=== PATIENT | male | born 1965 | race Caucasian/White ===

== ENCOUNTER 2021-06-27 12:58 | Inpatient (IN) ==
[2021-06-27 15:00] LABS: Basophils # 0.1 K/mcL (0.0-0.2); Basophils % 0.7 %; Eosinophils # 0.4 K/mcL (0.0-0.6); Eosinophils % 2.6 %; Hematocrit 20.4 % (37.5-50.1); Hemoglobin 6.3 g/dL (12.9-16.9); Immature Granulocytes % 1.7 % (0-4); Lymphocytes # 2.7 K/mcL (0.6-4.6); Lymphocytes % 19.1 %; Mean Corpuscular HGB Conc 30.9 g/dL (31.6-35.5); Mean Corpuscular Hemoglobin 26.9 pg (28.0-33.3); Mean Corpuscular Volume 87.2 fL (83.0-100.0); Mean Platelet Volume 9.2 fL (9.4-12.4); Monocytes # 0.7 K/mcL (0.0-1.3); Monocytes % 4.9 %; Neutrophils # 9.9 K/mcL (1.6-8.9); Nucleated Red Blood Cells 0.3 /100 WBC (0); Platelet Count 620 K/mcL (140-400); Red Blood Count 2.34 M/mcL (4.19-5.50); Red Cell Distribution Width 17.5 % (11.5-14.5); White Blood Count 13.9 K/mcL (4.3-11.1)
[2021-06-27 15:03] LABS: Bilirubin,Urine Moderate (Negative); Blood,Urine Negative (Negative); Clarity,Urine Clear (Clear); Color,Urine Yellow (Yellow); Glucose,Urine (UA) Normal (Normal); Ketones,Urine Negative (Negative); Leukocyte Esterase,Urine Negative (Negative); Nitrite,Urine Negative (Negative); Protein,Urine Trace mg/dL (Neg-Trace); Specific Gravity,Urine 1.015 (1.010-1.025); Urobilinogen,Urine >=8.0 mg/dL (Normal)
[2021-06-27 15:17] LABS: BUN/Creatinine Ratio 12 (6-26); Blood Urea Nitrogen 14 mg/dL (6-20); Calcium 8.9 mg/dL (8.6-10.3); Carbon Dioxide 29 mEq/L (23-29); Chloride 92 mEq/L (98-107); Glucose 111 mg/dL (70-105); Osmolality,Calculated 275 (280-300); Sodium 132 mEq/L (136-145); eGFR For African Americans > 60 (> 60); eGFR For Non-African Americans > 60 (> 60)
[2021-06-27 16:13] LABS: INR 1.5; Prothrombin Time 16.7 Seconds (9.4-12.1)
[2021-06-27] MEDS ORDERED: 0.9 % Sodium Chloride 250 ML IVC SCH (16:15)
[2021-06-27] MEDS ORDERED: 0.9 % Sodium Chloride 1,000 ML IVC ONE (16:34)
[2021-06-27] MEDS: 0.9 % Sodium Chloride 1,000 ML IVC ONE ×2 (16:36→21:00)
[2021-06-27 18:01] LABS: Albumin 3.6 g/dL (3.5-5.7); Albumin/Globulin Ratio 0.9 (1.1-2.2); Bilirubin,Indirect 1.5 mg/dL (0.0-1.0); Bilirubin,Total 2.5 mg/dL (0.3-1.0); Total Protein 7.6 g/dL (6.4-8.9)
[2021-06-27] MEDS ORDERED: Pantoprazole 40 MG VIAL IVP ONE ×2 (18:17→19:15)
[2021-06-27] MEDS ORDERED: Pantoprazole 40 MG VIAL IVP SCH (21:00)
[2021-06-27 22:09] LABS: Hematocrit 20.1 % (37.5-50.1); Hemoglobin 6.2 g/dL (12.9-16.9)
[2021-06-28 05:15] LABS: Basophils # 0.1 K/mcL (0.0-0.2); Basophils % 0.7 %; Eosinophils # 0.3 K/mcL (0.0-0.6); Eosinophils % 2.8 %; Hematocrit 22.4 % (37.5-50.1); Immature Granulocytes % 1.1 % (0-4); Lymphocytes # 2.3 K/mcL (0.6-4.6); Lymphocytes % 21.2 %; Mean Corpuscular HGB Conc 31.3 g/dL (31.6-35.5); Mean Corpuscular Hemoglobin 27.1 pg (28.0-33.3); Mean Corpuscular Volume 86.8 fL (83.0-100.0); Mean Platelet Volume 9.3 fL (9.4-12.4); Monocytes # 0.6 K/mcL (0.0-1.3); Monocytes % 5.8 %; Neutrophils # 7.6 K/mcL (1.6-8.9); Nucleated Red Blood Cells 0.3 /100 WBC (0); Platelet Count 439 K/mcL (140-400); Red Blood Count 2.58 M/mcL (4.19-5.50); Red Cell Distribution Width 16.5 % (11.5-14.5); Segmented Neutrophils % 68.4 %; White Blood Count 11.1 K/mcL (4.3-11.1)
[2021-06-28 07:54] LABS: Iron 59 mcg/dL (65-175)
[2021-06-28] MEDS ORDERED: Octreotide 400 MCG in 0.9 % Sodium Chloride 100 ML IVC SCH ×3 (08:45→18:01)
[2021-06-28] MEDS ORDERED: Pantoprazole 40 MG VIAL IVP SCH (09:00)
[2021-06-28 09:57] LABS: Basophils # 0.1 K/mcL (0.0-0.2); Basophils % 0.7 %; Eosinophils # 0.4 K/mcL (0.0-0.6); Eosinophils % 3.7 %; Hemoglobin 7.2 g/dL (12.9-16.9); Lymphocytes # 2.6 K/mcL (0.6-4.6); Lymphocytes % 22.4 %; Mean Corpuscular HGB Conc 31.3 g/dL (31.6-35.5); Mean Corpuscular Hemoglobin 27.1 pg (28.0-33.3); Mean Corpuscular Volume 86.5 fL (83.0-100.0); Mean Platelet Volume 9.2 fL (9.4-12.4); Monocytes # 0.7 K/mcL (0.0-1.3); Monocytes % 6.5 %; Neutrophils # 7.5 K/mcL (1.6-8.9); Nucleated Red Blood Cells 0.4 /100 WBC (0); Platelet Count 467 K/mcL (140-400); Red Blood Count 2.66 M/mcL (4.19-5.50); Red Cell Distribution Width 16.8 % (11.5-14.5); Segmented Neutrophils % 65.7 %; White Blood Count 11.4 K/mcL (4.3-11.1)
[2021-06-28 10:56] LABS: Estimated Average Glucose 88 mg/dl; Hemoglobin A1C 4.7 %
[2021-06-28 11:27] VITALS: BP 122/76; PULSE 74; RESP 16; TEMP 98.2; O2SAT 97
[2021-07-03 11:20] LABS: % Iron Saturation 20 % (20-55); Transferrin 210
== END 2021-06-28 11:40 | disposition short-term general hospital (02) | DRG 378 ==
LOC: EMEROOGRE 12:58 → INPGRE 12:58
PROVIDERS: ADMIT Family Medicine; ATTEND Family Medicine

== ENCOUNTER 2021-07-04 14:56 | Inpatient (IN) ==
[2021-07-04] MEDS ORDERED: BUPRENORPHINE HCL SL SCH (21:00)
[2021-07-04] MEDS ORDERED: NALOXONE HCL SL SCH (21:00)
[2021-07-04] MEDS ORDERED: *HR* Buprenorphine HCl 8 MG TAB.SUBL SL SCH (22:45)
[2021-07-04] MEDS: *HR* Buprenorphine HCl 8 MG TAB.SUBL SL SCH (23:09)
[2021-07-05 05:31] LABS: Hematocrit 26.6 % (37.5-50.1); Hemoglobin 8.5 g/dL (12.9-16.9); Mean Corpuscular Hemoglobin 28.3 pg (28.0-33.3); Mean Corpuscular Volume 88.7 fL (83.0-100.0); Mean Platelet Volume 9.5 fL (9.4-12.4); Platelet Count 325 K/mcL (140-400); Red Cell Distribution Width 16.9 % (11.5-14.5); White Blood Count 4.7 K/mcL (4.3-11.1)
[2021-07-05 05:48] LABS: BUN/Creatinine Ratio 13 (6-26); Blood Urea Nitrogen 11 mg/dL (6-20); Calcium 8.7 mg/dL (8.6-10.3); Carbon Dioxide 25 mEq/L (23-29); Chloride 95 mEq/L (98-107); Glucose 90 mg/dL (70-105); Osmolality,Calculated 265 (280-300); Potassium 4.2 mEq/L (3.5-5.1); Sodium 128 mEq/L (136-145); eGFR For African Americans > 60 (> 60); eGFR For Non-African Americans > 60 (> 60)
[2021-07-05] MEDS ORDERED: 0.9 % Sodium Chloride 1,000 ML IVC ONE (08:38)
[2021-07-05] MEDS: Cholecalciferol (D-3) 1,000 UNIT (25MCG) TABLET PO SCH (09:07)
[2021-07-05] MEDS: allopurinoL 100 MG TABLET PO SCH (09:07)
[2021-07-05] MEDS: *HR* Buprenorphine HCl 8 MG TAB.SUBL SL SCH ×2 (09:07→20:20)
[2021-07-05] MEDS: Cyanocobalamin (B-12) 1,000 MCG TABLET PO SCH (09:07)
[2021-07-05 11:34] LABS: BUN/Creatinine Ratio 12 (6-26); Blood Urea Nitrogen 12 mg/dL (6-20); Calcium 8.8 mg/dL (8.6-10.3); Carbon Dioxide 24 mEq/L (23-29); Chloride 95 mEq/L (98-107); Glucose 99 mg/dL (70-105); Osmolality,Calculated 268 (280-300); Potassium 4.1 mEq/L (3.5-5.1); Sodium 129 mEq/L (136-145); eGFR For African Americans > 60 (> 60); eGFR For Non-African Americans > 60 (> 60)
[2021-07-06 06:23] LABS: Basophils % 0.6 %; Eosinophils # 0.3 K/mcL (0.0-0.6); Eosinophils % 5.6 %; Hematocrit 25.9 % (37.5-50.1); Hemoglobin 8.3 g/dL (12.9-16.9); Immature Granulocytes % 0.6 % (0-4); Lymphocytes # 1.6 K/mcL (0.6-4.6); Mean Corpuscular Hemoglobin 28.4 pg (28.0-33.3); Mean Corpuscular Volume 88.7 fL (83.0-100.0); Mean Platelet Volume 9.5 fL (9.4-12.4); Monocytes # 0.5 K/mcL (0.0-1.3); Monocytes % 9.5 %; Neutrophils # 2.5 K/mcL (1.6-8.9); Platelet Count 320 K/mcL (140-400); Red Blood Count 2.92 M/mcL (4.19-5.50); Red Cell Distribution Width 16.9 % (11.5-14.5); Segmented Neutrophils % 50.7 %
[2021-07-06 06:39] LABS: BUN/Creatinine Ratio 13 (6-26); Blood Urea Nitrogen 12 mg/dL (6-20); Calcium 8.7 mg/dL (8.6-10.3); Carbon Dioxide 26 mEq/L (23-29); Chloride 96 mEq/L (98-107); Glucose 93 mg/dL (70-105); Osmolality,Calculated 267 (280-300); Sodium 129 mEq/L (136-145); eGFR For African Americans > 60 (> 60); eGFR For Non-African Americans > 60 (> 60)
[2021-07-06] MEDS ORDERED: 0.9 % Sodium Chloride 1,000 ML IVC ONE (07:56)
[2021-07-06] MEDS: *HR* Buprenorphine HCl 8 MG TAB.SUBL SL SCH ×2 (09:13→21:20)
[2021-07-06] MEDS: Cyanocobalamin (B-12) 1,000 MCG TABLET PO SCH (09:13)
[2021-07-06] MEDS: Cholecalciferol (D-3) 1,000 UNIT (25MCG) TABLET PO SCH (09:13)
[2021-07-06] MEDS: allopurinoL 100 MG TABLET PO SCH (09:13)
[2021-07-06] MEDS: polyethylene glycoL 3350 17 GM POWD.PACK PO SCH (09:13)
[2021-07-06] MEDS ORDERED: polyethylene glycoL 3350 17 GM POWD.PACK PO ONE (21:00)
[2021-07-07] MEDS: *HR* Buprenorphine HCl 8 MG TAB.SUBL SL SCH ×2 (08:26→20:20)
[2021-07-07] MEDS: polyethylene glycoL 3350 17 GM POWD.PACK PO SCH (08:26)
[2021-07-07] MEDS: Cholecalciferol (D-3) 1,000 UNIT (25MCG) TABLET PO SCH (08:26)
[2021-07-07] MEDS: Cyanocobalamin (B-12) 1,000 MCG TABLET PO SCH (08:26)
[2021-07-07] MEDS: allopurinoL 100 MG TABLET PO SCH (08:26)
[2021-07-07 09:43] LABS: Basophils # 0.1 K/mcL (0.0-0.2); Basophils % 0.8 %; Eosinophils # 0.4 K/mcL (0.0-0.6); Eosinophils % 6.3 %; Hemoglobin 9.7 g/dL (12.9-16.9); Immature Granulocytes % 0.5 % (0-4); Lymphocytes # 2.3 K/mcL (0.6-4.6); Lymphocytes % 35.7 %; Mean Corpuscular HGB Conc 32.3 g/dL (31.6-35.5); Mean Corpuscular Hemoglobin 28.4 pg (28.0-33.3); Mean Platelet Volume 9.3 fL (9.4-12.4); Monocytes # 0.4 K/mcL (0.0-1.3); Monocytes % 5.6 %; Neutrophils # 3.3 K/mcL (1.6-8.9); Platelet Count 483 K/mcL (140-400); Red Blood Count 3.41 M/mcL (4.19-5.50); Red Cell Distribution Width 16.4 % (11.5-14.5); Segmented Neutrophils % 51.1 %; White Blood Count 6.5 K/mcL (4.3-11.1)
[2021-07-07 09:55] LABS: BUN/Creatinine Ratio 13 (6-26); Blood Urea Nitrogen 13 mg/dL (6-20); Carbon Dioxide 21 mEq/L (23-29); Chloride 95 mEq/L (98-107); Glucose 129 mg/dL (70-105); Osmolality,Calculated 264 (280-300); Potassium 3.9 mEq/L (3.5-5.1); Sodium 126 mEq/L (136-145); eGFR For African Americans > 60 (> 60); eGFR For Non-African Americans > 60 (> 60)
[2021-07-07] MEDS: 0.9 % Sodium Chloride 1,000 ML IVC SCH (14:49)
[2021-07-07 15:16] LABS: Thyroid Stimulating Hormone 3.878 mcIU/mL (0.340-5.600)
[2021-07-08] MEDS: 0.9 % Sodium Chloride 1,000 ML IVC SCH (03:55)
[2021-07-08 05:43] LABS: Basophils # 0.1 K/mcL (0.0-0.2); Eosinophils # 0.3 K/mcL (0.0-0.6); Eosinophils % 6.3 %; Hematocrit 24.6 % (37.5-50.1); Hemoglobin 7.9 g/dL (12.9-16.9); Immature Granulocytes % 0.4 % (0-4); Lymphocytes # 1.5 K/mcL (0.6-4.6); Lymphocytes % 29.6 %; Mean Corpuscular HGB Conc 32.1 g/dL (31.6-35.5); Mean Corpuscular Volume 87.2 fL (83.0-100.0); Mean Platelet Volume 9.6 fL (9.4-12.4); Monocytes # 0.5 K/mcL (0.0-1.3); Monocytes % 9.7 %; Neutrophils # 2.7 K/mcL (1.6-8.9); Platelet Count 328 K/mcL (140-400); Red Blood Count 2.82 M/mcL (4.19-5.50); White Blood Count 5.1 K/mcL (4.3-11.1)
[2021-07-08 06:00] LABS: BUN/Creatinine Ratio 11 (6-26); Blood Urea Nitrogen 10 mg/dL (6-20); Calcium 8.5 mg/dL (8.6-10.3); Carbon Dioxide 26 mEq/L (23-29); Chloride 96 mEq/L (98-107); Glucose 94 mg/dL (70-105); Osmolality,Calculated 269 (280-300); Potassium 3.7 mEq/L (3.5-5.1); Sodium 130 mEq/L (136-145); eGFR For African Americans > 60 (> 60); eGFR For Non-African Americans > 60 (> 60)
[2021-07-08] MEDS: *HR* Buprenorphine HCl 8 MG TAB.SUBL SL SCH ×2 (08:11→20:38)
[2021-07-08] MEDS: Cholecalciferol (D-3) 1,000 UNIT (25MCG) TABLET PO SCH (08:11)
[2021-07-08] MEDS: Cyanocobalamin (B-12) 1,000 MCG TABLET PO SCH (08:11)
[2021-07-08] MEDS: polyethylene glycoL 3350 17 GM POWD.PACK PO SCH (08:11)
[2021-07-08] MEDS: allopurinoL 100 MG TABLET PO SCH (08:11)
[2021-07-08 08:18] LABS: Hematocrit 25.2 % (37.5-50.1); Hemoglobin 8.2 g/dL (12.9-16.9)
[2021-07-08 08:20] LABS: VBG Ionized Calcium 1.13 mmol/L (1.15-1.35)
[2021-07-08] MEDS: Calcium Gluconate 1gm/50mL 1 GM/50 ML BAG IVPB SCH ×3 (11:24→12:58)
[2021-07-09] MEDS: 0.9 % Sodium Chloride 1,000 ML IVC SCH (04:00)
[2021-07-09 06:26] LABS: Basophils % 0.8 %; Eosinophils # 0.3 K/mcL (0.0-0.6); Eosinophils % 5.2 %; Hematocrit 24.5 % (37.5-50.1); Hemoglobin 7.9 g/dL (12.9-16.9); Immature Granulocytes % 0.4 % (0-4); Lymphocytes # 1.4 K/mcL (0.6-4.6); Lymphocytes % 28.8 %; Mean Corpuscular HGB Conc 32.2 g/dL (31.6-35.5); Mean Corpuscular Hemoglobin 28.2 pg (28.0-33.3); Mean Corpuscular Volume 87.5 fL (83.0-100.0); Mean Platelet Volume 9.6 fL (9.4-12.4); Monocytes # 0.5 K/mcL (0.0-1.3); Monocytes % 10.2 %; Neutrophils # 2.6 K/mcL (1.6-8.9); Platelet Count 319 K/mcL (140-400); Segmented Neutrophils % 54.6 %; White Blood Count 4.8 K/mcL (4.3-11.1)
[2021-07-09 07:08] LABS: BUN/Creatinine Ratio 10 (6-26); Blood Urea Nitrogen 9 mg/dL (6-20); Calcium 8.5 mg/dL (8.6-10.3); Carbon Dioxide 26 mEq/L (23-29); Chloride 96 mEq/L (98-107); Glucose 97 mg/dL (70-105); Osmolality,Calculated 267 (280-300); Potassium 3.8 mEq/L (3.5-5.1); Sodium 129 mEq/L (136-145); eGFR For African Americans > 60 (> 60); eGFR For Non-African Americans > 60 (> 60)
[2021-07-09] MEDS: *HR* Buprenorphine HCl 8 MG TAB.SUBL SL SCH ×2 (08:53→20:14)
[2021-07-09] MEDS: Cyanocobalamin (B-12) 1,000 MCG TABLET PO SCH (08:53)
[2021-07-09] MEDS: Cholecalciferol (D-3) 1,000 UNIT (25MCG) TABLET PO SCH (08:53)
[2021-07-09] MEDS: allopurinoL 100 MG TABLET PO SCH (08:53)
[2021-07-09] MEDS: polyethylene glycoL 3350 17 GM POWD.PACK PO SCH (08:54)
[2021-07-09] MEDS ORDERED: Tolvaptan 15 MG TABLET PO ONE (10:00)
[2021-07-10 04:49] LABS: Basophils # 0.1 K/mcL (0.0-0.2); Basophils % 1.3 %; Eosinophils # 0.2 K/mcL (0.0-0.6); Eosinophils % 4.4 %; Hematocrit 26.4 % (37.5-50.1); Hemoglobin 8.2 g/dL (12.9-16.9); Immature Granulocytes % 0.6 % (0-4); Lymphocytes # 1.4 K/mcL (0.6-4.6); Mean Corpuscular HGB Conc 31.1 g/dL (31.6-35.5); Mean Corpuscular Hemoglobin 27.8 pg (28.0-33.3); Mean Corpuscular Volume 89.5 fL (83.0-100.0); Mean Platelet Volume 9.4 fL (9.4-12.4); Monocytes # 0.5 K/mcL (0.0-1.3); Monocytes % 10.1 %; Neutrophils # 2.6 K/mcL (1.6-8.9); Platelet Count 350 K/mcL (140-400); Red Blood Count 2.95 M/mcL (4.19-5.50); Segmented Neutrophils % 54.6 %; White Blood Count 4.7 K/mcL (4.3-11.1)
[2021-07-10 05:01] LABS: BUN/Creatinine Ratio 9 (6-26); Blood Urea Nitrogen 8 mg/dL (6-20); Calcium 8.9 mg/dL (8.6-10.3); Carbon Dioxide 27 mEq/L (23-29); Chloride 100 mEq/L (98-107); Glucose 102 mg/dL (70-105); Osmolality,Calculated 279 (280-300); Potassium 3.8 mEq/L (3.5-5.1); Sodium 135 mEq/L (136-145); eGFR For African Americans > 60 (> 60); eGFR For Non-African Americans > 60 (> 60)
[2021-07-10] MEDS: Cyanocobalamin (B-12) 1,000 MCG TABLET PO SCH (08:09)
[2021-07-10] MEDS: polyethylene glycoL 3350 17 GM POWD.PACK PO SCH ×2 (08:09→19:46)
[2021-07-10] MEDS: *HR* Buprenorphine HCl 8 MG TAB.SUBL SL SCH ×2 (08:09→19:46)
[2021-07-10] MEDS: Cholecalciferol (D-3) 1,000 UNIT (25MCG) TABLET PO SCH (08:09)
[2021-07-10] MEDS: allopurinoL 100 MG TABLET PO SCH (08:09)
[2021-07-11] MEDS: Ibuprofen 600 MG TABLET PO PRN ×2 (03:06→13:02)
[2021-07-11 05:15] LABS: Basophils # 0.1 K/mcL (0.0-0.2); Eosinophils # 0.2 K/mcL (0.0-0.6); Eosinophils % 2.8 %; Hematocrit 27.1 % (37.5-50.1); Hemoglobin 8.6 g/dL (12.9-16.9); Immature Granulocytes % 0.3 % (0-4); Lymphocytes # 1.3 K/mcL (0.6-4.6); Lymphocytes % 20.6 %; Mean Corpuscular HGB Conc 31.7 g/dL (31.6-35.5); Mean Corpuscular Hemoglobin 27.9 pg (28.0-33.3); Mean Platelet Volume 9.1 fL (9.4-12.4); Monocytes # 0.6 K/mcL (0.0-1.3); Monocytes % 9.3 %; Neutrophils # 4.1 K/mcL (1.6-8.9); Platelet Count 358 K/mcL (140-400); Red Blood Count 3.08 M/mcL (4.19-5.50); Red Cell Distribution Width 15.7 % (11.5-14.5); White Blood Count 6.1 K/mcL (4.3-11.1)
[2021-07-11 05:28] LABS: BUN/Creatinine Ratio 10 (6-26); Blood Urea Nitrogen 9 mg/dL (6-20); Calcium 8.8 mg/dL (8.6-10.3); Carbon Dioxide 26 mEq/L (23-29); Chloride 96 mEq/L (98-107); Glucose 105 mg/dL (70-105); Osmolality,Calculated 271 (280-300); Sodium 131 mEq/L (136-145); eGFR For African Americans > 60 (> 60); eGFR For Non-African Americans > 60 (> 60)
[2021-07-11] MEDS: *HR* Buprenorphine HCl 8 MG TAB.SUBL SL SCH ×2 (08:31→21:43)
[2021-07-11] MEDS: Cyanocobalamin (B-12) 1,000 MCG TABLET PO SCH (08:31)
[2021-07-11] MEDS: allopurinoL 100 MG TABLET PO SCH (08:31)
[2021-07-11] MEDS: Cholecalciferol (D-3) 1,000 UNIT (25MCG) TABLET PO SCH (08:31)
[2021-07-11] MEDS: polyethylene glycoL 3350 17 GM POWD.PACK PO SCH ×2 (08:32→17:09)
[2021-07-11] MEDS: Sennosides/Docusate Sodium TABLET PO SCH (21:43)
[2021-07-12 05:11] LABS: Basophils # 0.1 K/mcL (0.0-0.2); Basophils % 1.2 %; Eosinophils # 0.3 K/mcL (0.0-0.6); Eosinophils % 5.2 %; Hematocrit 26.5 % (37.5-50.1); Hemoglobin 8.3 g/dL (12.9-16.9); Immature Granulocytes % 0.2 % (0-4); Lymphocytes # 2.1 K/mcL (0.6-4.6); Lymphocytes % 41.1 %; Mean Corpuscular HGB Conc 31.3 g/dL (31.6-35.5); Mean Corpuscular Hemoglobin 27.9 pg (28.0-33.3); Mean Corpuscular Volume 88.9 fL (83.0-100.0); Mean Platelet Volume 9.1 fL (9.4-12.4); Monocytes # 0.5 K/mcL (0.0-1.3); Monocytes % 10.4 %; Neutrophils # 2.1 K/mcL (1.6-8.9); Platelet Count 354 K/mcL (140-400); Red Blood Count 2.98 M/mcL (4.19-5.50); Red Cell Distribution Width 15.7 % (11.5-14.5); Segmented Neutrophils % 41.9 %
[2021-07-12 05:24] LABS: BUN/Creatinine Ratio 9 (6-26); Blood Urea Nitrogen 11 mg/dL (6-20); Calcium 8.6 mg/dL (8.6-10.3); Carbon Dioxide 26 mEq/L (23-29); Chloride 96 mEq/L (98-107); Glucose 96 mg/dL (70-105); Osmolality,Calculated 271 (280-300); Potassium 3.7 mEq/L (3.5-5.1); Sodium 131 mEq/L (136-145); eGFR For African Americans > 60 (> 60); eGFR For Non-African Americans > 60 (> 60)
[2021-07-12] MEDS: Cyanocobalamin (B-12) 1,000 MCG TABLET PO SCH (10:39)
[2021-07-12] MEDS: allopurinoL 100 MG TABLET PO SCH (10:39)
[2021-07-12] MEDS: Cholecalciferol (D-3) 1,000 UNIT (25MCG) TABLET PO SCH (10:39)
[2021-07-12] MEDS: Sennosides/Docusate Sodium TABLET PO SCH ×2 (10:39→21:32)
[2021-07-12] MEDS: *HR* Buprenorphine HCl 8 MG TAB.SUBL SL SCH ×2 (10:39→21:32)
[2021-07-12] MEDS: Ibuprofen 600 MG TABLET PO PRN ×2 (10:39→21:32)
[2021-07-12] MEDS: polyethylene glycoL 3350 17 GM POWD.PACK PO SCH ×2 (10:40→21:32)
[2021-07-13 04:32] LABS: Basophils # 0.1 K/mcL (0.0-0.2); Basophils % 1.5 %; Eosinophils # 0.3 K/mcL (0.0-0.6); Eosinophils % 6.7 %; Hematocrit 26.6 % (37.5-50.1); Hemoglobin 8.4 g/dL (12.9-16.9); Immature Granulocytes % 0.2 % (0-4); Lymphocytes # 2.1 K/mcL (0.6-4.6); Lymphocytes % 46.1 %; Mean Corpuscular HGB Conc 31.6 g/dL (31.6-35.5); Mean Corpuscular Hemoglobin 27.6 pg (28.0-33.3); Mean Corpuscular Volume 87.5 fL (83.0-100.0); Monocytes # 0.5 K/mcL (0.0-1.3); Monocytes % 10.6 %; Neutrophils # 1.6 K/mcL (1.6-8.9); Platelet Count 374 K/mcL (140-400); Red Blood Count 3.04 M/mcL (4.19-5.50); Red Cell Distribution Width 15.5 % (11.5-14.5); Segmented Neutrophils % 34.9 %; White Blood Count 4.6 K/mcL (4.3-11.1)
[2021-07-13 04:47] LABS: BUN/Creatinine Ratio 10 (6-26); Blood Urea Nitrogen 11 mg/dL (6-20); Calcium 8.8 mg/dL (8.6-10.3); Carbon Dioxide 27 mEq/L (23-29); Chloride 96 mEq/L (98-107); Glucose 100 mg/dL (70-105); Osmolality,Calculated 273 (280-300); Potassium 3.8 mEq/L (3.5-5.1); Sodium 132 mEq/L (136-145); eGFR For African Americans > 60 (> 60); eGFR For Non-African Americans > 60 (> 60)
[2021-07-13 07:46] VITALS: RESP 18; TEMP 97.5; O2SAT 100
[2021-07-13 09:24] VITALS: BP 152/92; PULSE 65
[2021-07-13] MEDS: allopurinoL 100 MG TABLET PO SCH (09:24)
[2021-07-13] MEDS: Cholecalciferol (D-3) 1,000 UNIT (25MCG) TABLET PO SCH (09:24)
[2021-07-13] MEDS: *HR* Buprenorphine HCl 8 MG TAB.SUBL SL SCH (09:24)
[2021-07-13] MEDS: Cyanocobalamin (B-12) 1,000 MCG TABLET PO SCH (09:25)
[2021-07-13] MEDS: Ibuprofen 600 MG TABLET PO PRN (09:25)
[2021-07-13] MEDS: polyethylene glycoL 3350 17 GM POWD.PACK PO SCH (09:25)
[2021-07-13] MEDS: Sennosides/Docusate Sodium TABLET PO SCH (09:25)
== END 2021-07-13 16:10 | disposition home health service (06) | DRG 641 ==
LOC: INPGRE 17:51
PROVIDERS: ADMIT Family Medicine; ATTEND Family Medicine